=== PATIENT | female | born 1945 | race Caucasian/White ===

== ENCOUNTER → 2018-01-21 11:54 | Outpatient (CLI) | payer MEDICARE, SELFPAY ==
--- NOTE | 2018-01-21 | DI.MRI.S_ITS ---
PROCEDURE: MR KNEE RT WO CON INDICATIONS: Right knee internal derangement TECHNIQUE: Noncontrast sagittal PD fast spin echo and T2 fast spin echo with fat saturation, sagittal 3-D FLASH with fat saturation; coronal T1 spin echo and PD fast spin echo with fat saturation, and axial PD fast spin echo with fat saturation through the knee. COMPARISON: [facility], [place], XR KNEE ARTHRITIC SERIES BI, 01/06/2018, 14:57. [facility], KNEE SERIES LT, 11/22/2014, 14:05. [facility], MR, KNEE WITHOUT CONTRAST, 01/24/2014, 10:49. [facility], MR, LOWER EXTREM. JNT WO CONTRAST, 07/26/2010, 12:13. FINDINGS: Image quality: Diagnostic. Bones and joint: There is no acute fracture or dislocation. No suspicious osseous lesions are evident. No significant knee joint effusion is identified. There is no Martin's cyst. Small intra-articular joint bodies are present. The largest is located along the anterior margin of the femoral notch, which measures up to 10 mm in largest dimension (image 14, series 5). There is an irregular moderate to large full-thickness defect evident involving the lateral patellar facet with underlying degenerative/reactive marrow changes. Mild irregularity and thinning of the head articular cartilage within the medial and lateral tibiofemoral compartments is also present. Cruciate ligaments: The anterior and posterior cruciate ligaments are intact. There is slightly increased signal identified involving the anterior cruciate ligament. Menisci: There is a mildly tear identified involving the body and posterior horn of the medial meniscus that extends onto the inferior articular surface. Near complete posterior root avulsion appears to be present with prominent thinning of the posterior meniscal root. Thickening involving the body of the lateral meniscus on the coronal images does raise the possibility of a displaced flap component arising from the posterior root of the medial meniscus. There is increased signal identified oriented horizontally along the body of the lateral meniscus with fraying along the free edge of the lateral meniscus. A possibility of a subtle nondisplaced tear is difficult to exclude. Medial structures: The medial collateral ligament is intact. The semimembranosus tendon insertion is intact. The imaged portions of the pes anserinus tendons are unremarkable. No significant fluid is contained within the pes anserinus bursa. Lateral structures: The popliteal tendon is intact. The lateral collateral ligament proper (fibular collateral ligament) and the proximal tibiofibular ligaments are intact. The distal aspect of the biceps femoris tendon and the iliotibial band are intact. Anterior structures: The quadriceps and patellar tendons are intact. There is no significant edema in the infrapatellar fat pad. IMPRESSION: 1. Moderate to high-grade partial-thickness tear involving the posterior root of the medial meniscus with additional oblique tear involving the intra-articular surface. A flap tear extending into the medial gutter is difficult to exclude. 2. Low-grade anterior cruciate ligament sprain. 3. Horizontal tear versus scar involving the body of the lateral meniscus. 4. Moderate patellofemoral chondromalacia. 5. Small intra-articular joint bodies. Dictated by: Ryan Rojas M.D. on 01/21/2018 at 12:22 Approved by: Ryan Rojas M.D. on 01/21/2018 at 12:45
== END ==
PROVIDERS: PCP Internal Medicine; Visit Provider Orthopaedic Surgery
DX: M23.91 Unspecified internal derangement of right knee (principal); S83.241A Other tear of medial meniscus, current injury, right knee, initial encounter; S83.511A Sprain of anterior cruciate ligament of right knee, initial encounter; M94.261 Chondromalacia, right knee
CPT/HCPCS: 73721

== ENCOUNTER 2018-01-31 10:33 | Emergency (ER) | payer MEDICARE, SELFPAY ==
[2018-01-31 10:58] VITALS: BP 151/75; PULSE 75; RESP 13; TEMP 36.5; O2SAT 99
--- NOTE | 2018-01-31 11:16 | DI.US.S_ITS ---
PROCEDURE: US ABDOMEN COMPLETE INDICATIONS: RUQ pain TECHNIQUE: Real-time scanning was performed of the abdominal and retroperitoneal organs, with image documentation. COMPARISON: None. FINDINGS: Liver: Liver is normal in size and homogeneous in echotexture. Gallbladder: Gallbladder is sonographically normal. No gallstones. No gallbladder wall thickening. No pericholecystic fluid. No sonographic Rico sign. Biliary ducts: Intrahepatic bile ducts are non-dilated. Extrahepatic bile duct caliber measures 5.0 mm. Normal is 6-7 mm or less in diameter, or 10 mm or less post-cholecystectomy. Pancreas: Visualized portions of the pancreas are sonographically normal. Spleen: Spleen is normal in size and homogeneous in echotexture. Kidneys: Kidneys are normal in size and echotexture. Right kidney measures 9.4 cm long; left kidney measures 11.2 cm long. No hydronephrosis or nephrolithiasis. No solid masses. Aorta: Visualized aorta is normal in caliber at less than 3 cm. Iliacs: Not visualized due to bowel gas and cannot be evaluated. IVC: Intrahepatic inferior vena cava is patent. Miscellaneous: No free abdominal fluid. IMPRESSION: Normal examination without sonographic evidence of cholecystitis. Dictated by: Maura Rose MD, PhD on 01/31/2018 at 12:18 Approved by: Maura Rose MD, PhD on 01/31/2018 at 12:19
--- NOTE | 2018-01-31 11:17 | DI.RAD.S_ITS ---
PROCEDURE: XR CHEST 1V INDICATIONS: chest pain TECHNIQUE: One view of the chest was acquired. COMPARISON: None. FINDINGS: Surgical changes and devices: None. Lungs and pleura: No pleural effusions or pneumothorax. Lungs are clear. Mediastinum: Mediastinal contours appear normal. Heart size is normal. Bones and chest wall: No suspicious bony lesions. Overlying soft tissues appear unremarkable. IMPRESSION: No acute cardiopulmonary disease process. Dictated by: Maura Rose MD, PhD on 01/31/2018 at 12:04 Approved by: Maura Rose MD, PhD on 01/31/2018 at 12:04
[2018-01-31 11:43] VITALS: BP 144/62; PULSE 90; RESP 21; O2SAT 100
[2018-01-31 11:52] LABS: Add Manual Diff / Slide Review NO; Basophils Percent Auto 0.3 % (0-2); Eosinophils Percent Auto 0.2 % (2-4); Hematocrit 41.5 % (36-46); Hemoglobin 14.1 g/dL (12.0-16.0); Lymphocytes Percent Auto 8.8 % (25-40); Mean Corpuscular HGB Conc 33.9 % (30-36); Mean Corpuscular Volume 91.7 fL (80-100); Monocytes Percent Auto 8.1 % (3-14); Neutrophils Absolute Auto 6200 /uL (3000-5900); Neutrophils Percent Auto 82.6 % (50-75); Platelet Count 235 X10^3/uL (150-400); Red Blood Cell Count 4.53 X10^6/uL (4.0-5.2); Red Cell Distribution Width 13.5 % (11.6-14.8); White Blood Cell Count 7.5 X10^3/uL (4.5-11.0)
[2018-01-31] MEDS: SODIUM CHLORIDE 0.9% 1,000 ML 150 ML IV (11:53)
[2018-01-31] MEDS: ASPIRIN 81 MG TAB 324 MG PO (11:53)
[2018-01-31 11:57] LABS: INR 1.1 (0.9-1.3); Prothrombin Time 11.7 SECONDS (10.1-12.7)
[2018-01-31] MEDS: PANTOPRAZOLE 40 MG VIAL IV (11:58)
[2018-01-31 12:00] LABS: PTT Partial Thromboplastin Tim 32 SECONDS (26.4-36.2)
[2018-01-31 12:01] LABS: Alanine Aminotransferase 72 IU/L (9-52); Albumin Globulin Ratio 1.5 (1.0-2.8); Alkaline Phosphatase 77 U/L (38-126); Aspartate Aminotransferase 89 IU/L (14-36); BUN Creatinine Ratio 26.7 (6-22); Blood Urea Nitrogen 16 mg/dL (7-17); Calcium 10.7 mg/dL (8.4-10.2); Carbon Dioxide 26 mmol/L (22-32); Chloride 100 mmol/L (98-107); Creatine Kinase 75 U/L (30-135); Estimated Glomerular Filt Rate > 60.0 mL/min (>60); Globulin 3.4 g/dL (1.7-4.1); Glucose 117 mg/dL (80-110); Lipase 69 U/L (23-300); Potassium 4.7 mmol/L (3.4-5.1); Sodium 141 mmol/L (137-145); Total Protein 8.4 g/dL (6.3-8.2)
--- NOTE | 2018-01-31 12:01 | ED_ITS ---
HPI - Chest Pain General Chief Complaint: Chest Pain Stated Complaint: chest pain Time Seen by Provider: 01/31/18 11:27 Source: patient Mode of arrival: ambulatory History of Present Illness HPI narrative: Patient is a 72-year-old female who presents with chest pain. She said it started last evening at the [employer] game. She had problem artery and a salad for dinner she did take Tums last night she thought helped. However when she went to bed she had difficult time getting comfortable it kept her up all night. Pain is definitely worse with movement. All she feels it radiating from her epigastric area all the way up into her chest and jaw. Never had anything like this in the past. No nausea no diaphoresis no shortness of breath. MD complaint: chest pain Related Data Previous Rx's Medication Instructions Recorded omeprazole 40 mg PO DAILY #30 cap 01/31/18 Review of Systems Review of Systems GENERAL: Denies chills, fatigue, malaise, fever, sweats, travel HEENT: Denies sinus pain, ear pain, sore throat, difficulty swallowing, neck pain RESPIRATORY: Denies dyspnea, cough, wheezing, hemoptysis, sputum. CARDIOVASCULAR: See HPI GASTROINTESTINAL: Denies nausea, vomiting, abdominal pain, diarrhea, constipation, melena. : Denies dysuria, frequency, incontinence, hematuria, urinary retention, flank pain. MUSCULOSKELETAL: Denies weakness, joint pain, or bony pain SKIN: No rash, no erythema, no pruritus NEUROLOGIC: Denies weakness, dizziness, headache, numbness, change in speech, confusion PSYCHIATRIC: No concerning psychosocial issues. 12 point review of systems is negative except for those stated above and HPI Exam Initial Vital Signs Initial Vital Signs: Vital Signs Temperature 97.7 F 01/31/18 10:58 Pulse Rate 75 01/31/18 10:58 Respiratory Rate 13 01/31/18 10:58 Blood Pressure 151/75 H 01/31/18 10:58 Pulse Oximetry 99 01/31/18 10:58 GENERAL: Well-appearing, well-nourished and in no acute distress. HEENT: Head atraumatic,EOMI, pupils reactive, face symmetric, moist mucous membranes CARDIOVASCULAR: Regular rate and rhythm without murmurs, rubs or gallops. RESPIRATORY: Breath sounds equal bilaterally, no wheezes rales or rhonchi. ABDOMEN: Soft, nontender. Normoactive bowel sounds all 4 quadrants. No guarding or rebound : No CVA tenderness EXTREMITIES: Normal range of motion, no clubbing or edema. Neurovascularly intact NEUROLOGICAL: Alert and oriented x4.Normal gait and speech. Cranial nerves II through XII grossly intact. SKIN: Warm, dry, no laceration, no petechiae, no rashes or lesions. Scores HEART Score Heart Score history: Moderately Suspicious Heart Score EKG: Normal Heart Score Age: > or = 65 years old Heart Score risk factors: No known risk factors Heart Score troponin: < or = to normal limit Heart Score Total: 3 Course Orders Ordered: ED Orders 01/31/18 11:16 US abdomen complete Stat 01/31/18 11:17 XR chest 1V Stat 01/31/18 11:45 Complete Blood Count AUTO DIFF Stat Comprehensive Metabolic Panel Stat Lipase Stat Partial Thromboplastin Time Stat Prothrombin Time INR Stat Troponin with CK Cardiac Panel Stat Discontinued Medications Aspirin (Aspirin Chew) 324 mg PO NOW ONE Stop: 01/31/18 11:17 Last Admin: 01/31/18 11:53 Dose: 324 mg Sodium Chloride (Normal Saline 0.9%) 1,000 mls @ 150 mls/hr IV CONT [facility] Last Infusion: 01/31/18 14:02 Dose: 0 mls/hr Admin: 01/31/18 11:53 Dose: 150 mls/hr Pantoprazole Sodium (Protonix) 40 mg IV NOW ONE Stop: 01/31/18 11:17 Last Admin: 01/31/18 11:58 Dose: 40 mg Vital Signs - 8 hr 01/31/18 10:58 01/31/18 11:43 01/31/18 14:03 Temperature 97.7 F Pulse Rate 75 90 85 Respiratory Rate 13 21 15 Blood Pressure 151/75 H 143/68 H Blood Pressure [Left Arm] 144/62 H Pulse Oximetry 99 100 98 MDM - Chest Pain Lab Data Result diagrams: 01/31/18 11:45 01/31/18 11:45 Lab Results 01/31/18 01/31/18 01/31/18 Range/Units 11:45 11:45 11:45 WBC 7.5 (4.5-11.0) X10^3/uL RBC 4.53 (4.0-5.2) X10^6/uL Hgb 14.1 (12.0-16.0) g/dL Hct 41.5 (36-46) % MCV 91.7 (80-100) fL MCH 31.0 (26-34) PG MCHC 33.9 (30-36) % RDW 13.5 (11.6-14.8) % Plt Count 235 (150-400) X10^3/uL Neut % (Auto) 82.6 H (50-75) % Lymph % (Auto) 8.8 L (25-40) % [place] % (Auto) 8.1 (3-14) % Eos % (Auto) 0.2 L (2-4) % Baso % (Auto) 0.3 (0-2) % Neut # (Auto) 6200 H (3536-7643) /uL PT 11.7 (10.1-12.7) SECONDS INR 1.1 (0.9-1.3) APTT 32 (26.4-36.2) SECONDS Sodium 141 (137-145) mmol/L Potassium 4.7 (3.4-5.1) mmol/L Chloride 100 (98-107) mmol/L Carbon Dioxide 26 (22-32) mmol/L BUN 16 (7-17) mg/dL Creatinine 0.60 (0.52-1.04) mg/dL Estimated GFR > 60.0 (>60) mL/min BUN/Creatinine Ratio 26.7 H (6-22) Glucose 117 H (80-110) mg/dL Calcium 10.7 H (8.4-10.2) mg/dL Total Bilirubin 1.0 (0.2-1.3) mg/dL AST 89 H (14-36) IU/L ALT 72 H (9-52) IU/L Alkaline Phosphatase 77 (38-126) U/L Total Creatine Kinase 75 (30-135) U/L Troponin I < 0.012 (0.01-0.034) ng/mL Total Protein 8.4 H (6.3-8.2) g/dL Albumin 5.0 (3.5-5.0) g/dL Globulin 3.4 (1.7-4.1) g/dL Albumin/Globulin Ratio 1.5 (1.0-2.8) Lipase 69 (23-300) U/L Imaging Data Chest x-ray: Radiologist's impression: PROCEDURE: XR CHEST 1V INDICATIONS: chest pain TECHNIQUE: One view of the chest was acquired. COMPARISON: None. FINDINGS: Surgical changes and devices: None. Lungs and pleura: No pleural effusions or pneumothorax. Lungs are clear. Mediastinum: Mediastinal contours appear normal. Heart size is normal. Bones and chest wall: No suspicious bony lesions. Overlying soft tissues appear unremarkable. IMPRESSION: No acute cardiopulmonary disease process. Dictated by: Maura Rose MD, PhD on 01/31/2018 at 12:04 US - abdomen: Radiologist's impression: PROCEDURE: US ABDOMEN COMPLETE INDICATIONS: RUQ pain TECHNIQUE: Real-time scanning was performed of the abdominal and retroperitoneal organs, with image documentation. COMPARISON: None. FINDINGS: Liver: Liver is normal in size and homogeneous in echotexture. Gallbladder: Gallbladder is sonographically normal. No gallstones. No gallbladder wall thickening. No pericholecystic fluid. No sonographic Rico sign. Biliary ducts: Intrahepatic bile ducts are non-dilated. Extrahepatic bile duct caliber measures 5.0 mm. Normal is 6-7 mm or less in diameter, or 10 mm or less post-cholecystectomy. Pancreas: Visualized portions of the pancreas are sonographically normal. Spleen: Spleen is normal in size and homogeneous in echotexture. Kidneys: Kidneys are normal in size and echotexture. Right kidney measures 9.4 cm long; left kidney measures 11.2 cm long. No hydronephrosis or nephrolithiasis. No solid masses. Aorta: Visualized aorta is normal in caliber at less than 3 cm. Iliacs: Not visualized due to bowel gas and cannot be evaluated. IVC: Intrahepatic inferior vena cava is patent. Miscellaneous: No free abdominal fluid. IMPRESSION: Normal examination without sonographic evidence of cholecystitis. ECG Data Attestation: I personally reviewed and interpreted this ECG as follows: Prior ECG tracings: available for review Interpretation: EKG Normal sinus rhythm rate [address] changes similar to previous MDM Narrative Medical decision making narrative: Patient's pain is completely resolved and not returned. He will long discussion about chest pain and different causes. I still recommended following up with her primary care provider and if her pain should return she needs to return to the ED we have gotten all the testing for her heart if needed. However at this time she has had chest pain ongoing for more than 12 hr he has a negative troponin and other blood work. Discharge Plan Departure Patient Disposition: Home, Self-Care Clinical Impression: Atypical chest pain Discharge Date/Time: 01/31/18 14:04 Interventions: ED Discharge Assessment Last Done: 01/31/18 14:03 Instructions: DI for Atypical Chest Pain Activity Restrictions/Additional Instructions: *You have been diagnosed with atypical chest pain *What to do: You may still require further heart testing with her primary care provider however you do not need to stay in the hospital for this. *Continue to take medications as directed *Follow up with your primary care provider in 2-3 days *Return to ER if you should have persistent ongoing chest pain, shortness of breath or] any new, worsening or concerning symptoms Prescriptions: New omeprazole 40 mg capsule,delayed release(DR/EC) 40 mg PO DAILY Qty: 30 RF: 0 Referrals: Romero Christensen MD [Primary Care Provider] -
[2018-01-31 12:02] LABS: HEMOLYSIS 76 (0-50)
[2018-01-31 12:13] LABS: Troponin I < 0.012 ng/mL (0.01-0.034)
[2018-01-31 14:03] VITALS: BP 143/68; PULSE 85; RESP 15; O2SAT 98
== END 2018-01-31 14:04 | disposition home or self-care (01) ==
PROVIDERS: Emergency Provider Emergency Medicine; PCP Internal Medicine
DX: R07.89 Other chest pain (principal)
CPT/HCPCS: 36591; 71045; 76700; 80053; 82550; 82553; 83690; 84484; 85025; 85610; 85730; 93005; 96361; 96374; 99283; 99285; C9113

== ENCOUNTER 2018-02-03 11:01 | Emergency (ER) | payer MEDICARE, SELFPAY ==
[2018-02-03] VITALS (10 sets, daily range): BP systolic 78–167; BP diastolic 44–82; PULSE 82–99; RESP 16–27; TEMP 36.5; O2SAT 91–98; BMI 24.0
[2018-02-03 11:49] LABS: Add Manual Diff / Slide Review NO; Basophils Percent Auto 0.3 % (0-2); Eosinophils Percent Auto 0.4 % (2-4); Hematocrit 39.6 % (36-46); Hemoglobin 13.4 g/dL (12.0-16.0); Lymphocytes Percent Auto 7.4 % (25-40); Mean Corpuscular HGB Conc 33.9 % (30-36); Mean Corpuscular Volume 91.5 fL (80-100); Monocytes Percent Auto 7.2 % (3-14); Neutrophils Absolute Auto 6900 /uL (3000-5900); Neutrophils Percent Auto 84.7 % (50-75); Platelet Count 258 X10^3/uL (150-400); Red Blood Cell Count 4.33 X10^6/uL (4.0-5.2); Red Cell Distribution Width 13.5 % (11.6-14.8); White Blood Cell Count 8.2 X10^3/uL (4.5-11.0)
[2018-02-03] MEDS: ASPIRIN 81 MG TAB 324 MG PO (11:59)
[2018-02-03] MEDS: ACETAMINOPHEN 325 MG TABLET 650 MG PO (11:59)
[2018-02-03 12:03] LABS: Alanine Aminotransferase 58 IU/L (9-52); Albumin 4.6 g/dL (3.5-5.0); Albumin Globulin Ratio 1.3 (1.0-2.8); Alkaline Phosphatase 115 U/L (38-126); Aspartate Aminotransferase 53 IU/L (14-36); BUN Creatinine Ratio 25.7 (6-22); Bilirubin Total 0.9 mg/dL (0.2-1.3); Blood Urea Nitrogen 18 mg/dL (7-17); Calcium 9.7 mg/dL (8.4-10.2); Carbon Dioxide 30 mmol/L (22-32); Chloride 98 mmol/L (98-107); Creatine Kinase 49 U/L (30-135); Estimated Glomerular Filt Rate > 60.0 mL/min (>60); Globulin 3.5 g/dL (1.7-4.1); Glucose 133 mg/dL (80-110); HEMOLYSIS < 15 (0-50); Lipase 81 U/L (23-300); Potassium 4.1 mmol/L (3.4-5.1); Sodium 140 mmol/L (137-145); Total Protein 8.1 g/dL (6.3-8.2)
--- NOTE | 2018-02-03 12:07 | DI.CT.S_ITS ---
PROCEDURE: CT ANGIO CHEST PE PROTOCOL INDICATIONS: CP, SOB, hypoxia TECHNIQUE: After the administration of intravenous contrast, 2 mm thick sections acquired from the pulmonary apices to the posterior costophrenic angles. 3-dimensional maximum intensity projection (MIP) coronal and sagittal reformats were then acquired through the thorax. For radiation dose reduction, the following was used: automated exposure control, adjustment of mA and/or kV according to patient size. COMPARISON: None. FINDINGS: Image quality: Excellent. Pulmonary arteries: Pulmonary arteries are normal in size, and demonstrate no intraluminal filling defects to suggest central pulmonary embolism. Lungs and pleura: Small left-sided pleural effusion noted. Atelectasis noted in the dependent portions of the lungs. No pneumothorax. Central and peripheral airways are patent. Mediastinum: Heart size is normal, without pericardial effusion. No mediastinal or hilar adenopathy. Thoracic aorta is normal in caliber and enhancement. Esophagus is normal in caliber, without hiatal hernia. Bones and chest wall: No suspicious bony lesions. Ribs and thoracic spine appear intact throughout. Spine degenerative disc disease and facet arthropathy. Thyroid gland is within normal limits. No axillary or supraclavicular adenopathy. Abdomen: Visualized upper abdominal solid organs appear normal in the early arterial phase of enhancement. IMPRESSION: 1. No pulmonary embolus. 2. Small left-sided pleural effusion. Dictated by: Maura Rose MD, PhD on 02/03/2018 at 12:24 Approved by: Maura Rose MD, PhD on 02/03/2018 at 12:29
[2018-02-03 12:18] LABS: Troponin I < 0.012 ng/mL (0.01-0.034)
--- NOTE | 2018-02-03 13:00 | ED_ITS ---
HPI - Chest Pain General Chief Complaint: Chest Pain Stated Complaint: CHEST PAIN Time Seen by Provider: 02/03/18 11:25 Source: patient and family Mode of arrival: ambulatory Limitations: no limitations History of Present Illness HPI narrative: 72-year-old female presents with her , for the 2nd time in a few days with chief complaint of ongoing epigastric pain that is worse with a deep breath or motion of her thorax. She denies shortness of breath and is not dizzy nor weak or lightheaded. She denies any history of clots or cancer. She does travel frequently. She was seen and evaluated a few days ago for the same and had normal labs, x-ray and ultrasound. She was seen by her primary care provider whom had ordered an outpatient CAT scan for the possibility of PE but had a recurrent episode of her pain and presented here instead. Her description of discomfort she points to her epigastrium as opposed to her chest. MD complaint: chest pain Onset (ago): day(s) Duration: intermittent Pain location: substernal Severity: severe Severity scale (1-10): 10 Quality: sharp Relieving factors: nothing Exacerbating factors: inspiration and movement Associated symptoms: nausea Treatments prior to arrival chest pain: none Related Data On Oral Contraceptives: No Home Medications Medication Instructions Recorded Confirmed Calcium 1 tab PO DAILY 02/03/18 02/03/18 Magnesium 1 tab PO DAILY 02/03/18 02/03/18 amitriptyline 10 mg PO BEDTIME 02/03/18 02/03/18 potassium 1 tab PO DAILY 02/03/18 02/03/18 Previous Rx's Medication Instructions Recorded omeprazole 40 mg PO DAILY #30 cap 01/31/18 Allergies Allergy/AdvReac Type Severity Reaction Status Date / Time erythromycin base Allergy Verified 02/03/18 11:24 iodine Allergy Verified 02/03/18 11:24 Review of Systems Review of Systems All systems reviewed & are unremarkable except as noted in HPI and below Constitutional Denies chills, Denies fever(s), Denies lethargy and Denies weakness Eyes Denies change in vision, Denies eye discharge, Denies irritation and Denies loss of vision ENT Ears, Nose, Mouth, and Throat: Denies change in voice, Denies neck pain and Denies sore throat Cardiovascular Reports chest pain, Denies irregular heart rhythm, Denies lightheadedness, Denies palpitations, Denies dyspnea, Denies dyspnea on exertion and Denies orthopnea Respiratory Denies cough, Denies dyspnea, Denies dyspnea on exertion and Denies wheezing Gastrointestinal Gastrointestinal: Reports abdominal pain, Denies change in bowel habits, Denies diarrhea, Denies nausea and Denies vomiting Genitourinary Denies hematuria, Denies flank pain, Denies urinary incontinence and Denies urinary urgency Musculoskeletal Denies neck pain Integumentary/Breasts Denies pruritus, Denies erythema, Denies rash and Denies wounds Neurologic Denies confusion, Denies loss of vision and Denies weakness Psychiatric Denies anxiety, Denies confusion, Denies depression, Denies homicidal ideation and Denies suicidal ideation Endocrine Denies palpitations Hematologic/Lymphatic Denies easy bruising Allergic/Immunologic Denies wheezing [facility] Social History Smoking Status: Never smoker Exam Initial Vital Signs Initial Vital Signs: Vital Signs Temperature 97.7 F 02/03/18 11:01 Pulse Rate 85 02/03/18 11:01 Respiratory Rate 20 02/03/18 11:01 Blood Pressure 157/82 H 02/03/18 11:01 Pulse Oximetry 98 02/03/18 11:01 Const General: cooperative and well developed Nutritional Appearance: well nourished Orientation: alert, awake, oriented x3 and not confused [facility] Head: normocephalic and atraumatic Ears: external ears normal and TM's normal bilaterally Nose: external nose normal and No nasal discharge Face and sinus: sinuses nontender, face symmetric, no sinus tenderness and No dry mucous membranes Mouth: oral mucosae normal and moist mucous membranes Teeth and gingiva: dentition normal Throat: tonsils normal and uvula midline Eyes General: appearance normal, both eyes and all related structures Eyelids: eyelids normal Conjunctivae: conjunctivae normal Sclera: sclerae normal Pupils: PERRL EOM: EOM intact bilaterally Neck Neck: normal visual inspection, trachea midline, No lymphadenopathy, No midline deformity and No JVD Lymphatic: No lymphedema Chest Chest: normal inspection of the chest Resp Effort & Inspection: normal respiratory effort, able to speak in complete sentences, no respiratory distress and no use of accessory muscles Auscultation: clear to auscultation bilaterally, no rales, no rhonchi and no wheezes Cardio Rate: regular rate Rhythm: regular rhythm Heart Sounds: no click, no gallops, no murmurs and no rubs Pulses: normal peripheral pulses GI Inspection: non-distended Palpation: soft, no hepatosplenomegaly, No guarding, No pulsatile mass and No tender Auscultation: normal bowel sounds Back/Spine/Pelvis Back: No CVA tenderness Cervical Spine: cervical ROM normal and No pain with cervical ROM Thoracic/Lumbar Spine: thoracic and lumbar spine normal to inspection Skin General: no rashes or lesions noted, No jaundice and No petechiae Neuro General: alert, oriented x3, gait normal and no focal motor deficits Speech: speech normal Extrem General: full ROM, no clubbing, cyanosis or edema, no pedal edema and no calf tenderness Psych Appearance: well kempt Mental Status: mental status grossly normal Attitude: cooperative Thought Content: normal and suicidality Judgment: judgment good Course Orders Ordered: ED Orders 02/03/18 11:38 EKG-12 Lead Stat 02/03/18 11:43 Complete Blood Count AUTO DIFF Stat Comprehensive Metabolic Panel Stat Lipase Stat Troponin with CK Cardiac Panel Stat 02/03/18 12:07 CT angio chest PE protocol Stat 02/03/18 14:30 Troponin I Stat Discontinued Medications Acetaminophen (Tylenol) 650 mg PO NOW ONE Stop: 02/03/18 11:48 Last Admin: 02/03/18 11:59 Dose: 650 mg Aspirin (Aspirin Chew) 324 mg PO NOW ONE Stop: 02/03/18 11:39 Last Admin: 02/03/18 11:59 Dose: 324 mg Nitroglycerin (Nitrostat) 0.4 mg SL [id number] PRN PRN Reason: Chest Pain Last Admin: 02/03/18 14:34 Dose: 0.4 mg Admin: 02/03/18 14:26 Dose: 0.4 mg Vital Signs - 8 hr 02/03/18 11:01 02/03/18 12:34 02/03/18 13:25 Temperature 97.7 F Pulse Rate 85 90 89 Respiratory Rate 20 27 H 21 Blood Pressure 157/82 H Blood Pressure [Right Arm] 167/75 H 164/74 H Pulse Oximetry 98 97 98 02/03/18 14:08 02/03/18 14:26 02/03/18 14:34 Temperature Pulse Rate 86 92 H 99 H Respiratory Rate 23 Blood Pressure 134/58 H 113/56 L Blood Pressure [Right Arm] 134/58 H Pulse Oximetry 98 02/03/18 14:43 02/03/18 14:45 02/03/18 15:35 Temperature Pulse Rate 96 H 99 H 82 Respiratory Rate 24 16 Blood Pressure 78/44 L Blood Pressure [Right Arm] 105/52 L 107/55 L Pulse Oximetry 91 98 02/03/18 16:00 Temperature Pulse Rate 84 Respiratory Rate 18 Blood Pressure Blood Pressure [Right Arm] 105/56 L Pulse Oximetry 93 MDM - Chest Pain Differential Diagnosis Likely fracture of rib, pneumothorax, stable angina, unstable angina pectoris, atypical chest pain, st elevation myocardial infarction, costochondritis, chest pain, biliary colic and other (Dissection, AAA versus other) Medical Records Data Attestation: I reviewed the patient's medical records. Lab Data Attestation: I reviewed the patient's lab results. Result diagrams: 02/03/18 11:43 02/03/18 11:43 Lab Results 02/03/18 02/03/18 02/03/18 Range/Units 11:43 11:43 14:30 WBC 8.2 (4.5-11.0) X10^3/uL RBC 4.33 (4.0-5.2) X10^6/uL Hgb 13.4 (12.0-16.0) g/dL Hct 39.6 (36-46) % MCV 91.5 (80-100) fL MCH 31.0 (26-34) PG MCHC 33.9 (30-36) % RDW 13.5 (11.6-14.8) % Plt Count 258 (150-400) X10^3/uL Neut % (Auto) 84.7 H (50-75) % Lymph % (Auto) 7.4 L (25-40) % [place] % (Auto) 7.2 (3-14) % Eos % (Auto) 0.4 L (2-4) % Baso % (Auto) 0.3 (0-2) % Neut # (Auto) 6900 H (8888-4955) /uL Sodium 140 (137-145) mmol/L Potassium 4.1 (3.4-5.1) mmol/L Chloride 98 (98-107) mmol/L Carbon Dioxide 30 (22-32) mmol/L BUN 18 H (7-17) mg/dL Creatinine 0.70 (0.52-1.04) mg/dL Estimated GFR > 60.0 (>60) mL/min BUN/Creatinine Ratio 25.7 H (6-22) Glucose 133 H (80-110) mg/dL Calcium 9.7 (8.4-10.2) mg/dL Total Bilirubin 0.9 (0.2-1.3) mg/dL AST 53 H (14-36) IU/L ALT 58 H (9-52) IU/L Alkaline Phosphatase 115 (38-126) U/L Total Creatine Kinase 49 (30-135) U/L Troponin I < 0.012 0.014 (0.01-0.034) ng/mL Total Protein 8.1 (6.3-8.2) g/dL Albumin 4.6 (3.5-5.0) g/dL Globulin 3.5 (1.7-4.1) g/dL Albumin/Globulin Ratio 1.3 (1.0-2.8) Lipase 81 (23-300) U/L Imaging Data CT scan - chest: Radiologist's impression: PROCEDURE: CT ANGIO CHEST PE PROTOCOL INDICATIONS: CP, SOB, hypoxia TECHNIQUE: After the administration of intravenous contrast, 2 mm thick sections acquired from the pulmonary apices to the posterior costophrenic angles. 3-dimensional maximum intensity projection (MIP) coronal and sagittal reformats were then acquired through the thorax. For radiation dose reduction, the following was used: automated exposure control, adjustment of mA and/or kV according to patient size. COMPARISON: None. FINDINGS: Image quality: Excellent. Pulmonary arteries: Pulmonary arteries are normal in size, and demonstrate no intraluminal filling defects to suggest central pulmonary embolism. Lungs and pleura: Small left-sided pleural effusion noted. Atelectasis noted in the dependent portions of the lungs. No pneumothorax. Central and peripheral airways are patent. Mediastinum: Heart size is normal, without pericardial effusion. No mediastinal or hilar adenopathy. Thoracic aorta is normal in caliber and enhancement. Esophagus is normal in caliber, without hiatal hernia. Bones and chest wall: No suspicious bony lesions. Ribs and thoracic spine appear intact throughout. Spine degenerative disc disease and facet arthropathy. Thyroid gland is within normal limits. No axillary or supraclavicular adenopathy. Abdomen: Visualized upper abdominal solid organs appear normal in the early arterial phase of enhancement. IMPRESSION: 1. No pulmonary embolus. 2. Small left-sided pleural effusion. Dictated by: Maura Rose MD, PhD on 02/03/2018 at 12:24 Approved by: Maura Rose MD, PhD on 02/03/2018 at 12:29 ECG Data Attestation: I personally reviewed and interpreted this ECG as follows: Prior ECG tracings: available for review Interpretation: Normal sinus rhythm without signs of ectopy. Heart rate 85 MDM Narrative Medical decision making narrative: Extensive differential diagnosis including myocardial infarction, pulmonary embolism, dissection, AAA, pericardial effusion , pericarditis, pneumonia, pneumothorax, costochondritis as well as GI diagnoses such is biliary disease, pancreatitis, gastritis, peptic ulcer disease and others. Her symptoms started after eating fried food on Friday night and are epigastric in nature with some mild outpatient improvement with Tums. She has had 2 large workups evaluating for coronary artery disease with multiple normal troponins, EKGs. She has had a normal ultrasound for cholecystitis as well as the CT [facility] to rule out pulmonary embolism and other ominous findings. Discharge Plan Departure Patient Disposition: Home, Self-Care Clinical Impression: Abdominal pain, acute, epigastric Discharge Date/Time: 02/03/18 16:27 Interventions: ED Discharge Assessment Last Done: 02/03/18 16:27 Instructions: DI for Epigastric Pain Activity Restrictions/Additional Instructions: 1. Drink plenty of fluids with frequent small sips. 2. For the next 24 hours a clear liquid diet is advised. After that please employ a brat diet which would include bananas, rice, apples, toast. 3. Please take medications as directed. 4. Please follow-up with your doctor in the next 1-2 days. Call the office for an appointment. 5. Please return to the emergency Department for any worsening or persistent symptoms, such as increasing pain or fever. Prescriptions: No Action omeprazole 40 mg capsule,delayed release(DR/EC) 40 mg PO DAILY Qty: 30 RF: 0 amitriptyline 10 mg tablet 10 mg PO BEDTIME RF: 0 Calcium tablet 1 tab PO DAILY RF: 0 Magnesium tablet 1 tab PO DAILY RF: 0 potassium tablet 1 tab PO DAILY RF: 0 Referrals: Romero Christensen MD [Primary Care Provider] -
[2018-02-03] MEDS: NITROGLYCERIN 0.4 MG SL TAB SL ×2 (14:26→14:34)
--- NOTE | 2018-02-03 14:43 | PC.NURSE ---
After second dose of NTG sublingual, pt c/o dizziness. Blood pressure was taken and was 78/44. Holding 3rd dose.
[2018-02-03 15:03] LABS: Troponin I 0.014 ng/mL (0.01-0.034)
--- NOTE | 2018-02-03 15:23 | PC.NURSE ---
Pt ambulated to bathroom in stable gait and back to bed with one person stand by assist. Pt reports still has very mild kicked in the chest type of discomfort which is <1/10 during ambulation but feels better. Detailed discussion with pt on tests being done today and the other visit to r/o several typical dx with pt's presenting s/s. pt verbalized the understanding.
== END 2018-02-03 16:27 | disposition home or self-care (01) ==
PROVIDERS: Emergency Provider Emergency Medicine; PCP Internal Medicine
DX: R10.13 Epigastric pain (principal)
CPT/HCPCS: 36415; 71275; 80053; 81003; 82550; 82553; 83690; 84484; 85025; 93005; 93010; 99283; 99285; Q9967

== ENCOUNTER → 2018-02-06 13:13 | Outpatient (CLI) | payer MEDICARE, SELFPAY ==
--- NOTE | 2018-02-09 15:24 | DI.NM.S_ITS ---
DATE OF SERVICE: 02/06/2018 PROCEDURE: Exercise perfusion study. INDICATIONS: Chest pain with underlying hyperlipidemia. RADIOPHARMACEUTICAL: 25.6 mCi technetium-99m Myoview IV was injected at stress and 24.7 mCi technetium-99m Myoview IV was injected at rest. CARDIAC STRESS: Patient underwent exercise perfusion study under the supervision of an attending staff. She walked on Joshua protocol for 8 minutes 13 seconds and achieved 97% of target heart rate with normal blood pressure response. She achieved 10.1 METs of workload and functional aerobic impairment of -30%. No chest pain. She had some shortness of breath. Baseline EKG revealed sinus rhythm. Stress EKG did not reveal any inducible ischemic changes. There were no significant arrhythmias seen. RAW DATA: There was adequate myocardial uptake. There was breast shadow seen. GATED STUDY: Stress LV ejection fraction 84%. I don't see any obvious wall motion abnormalities. Resting end-diastolic volume is 64 mL. No transient ischemic dilatation. TID ratio is 0.93, which is within normal limits. Lung/heart ratio is 0.33, which is within normal limits. MYOCARDIAL PERFUSION SCAN: Stress supine and resting supine images revealed small-sized minimally decreased perfusion of distal anterior wall and anterior apex which got resolved during prone images suggest of breast tissue attenuation artifact. I don't see any convincing ischemia infarction pattern. CONCLUSION: I will call this study a normal myocardial perfusion study with evidence of breast tissue attenuation artifact which got resolved during prone images. Good exercise tolerance. Functional aerobic impairment -30%. No significant arrhythmias or ischemic EKG changes. Overall, this is a low-risk myocardial perfusion scan. Jenny Allison - ALBERTO/cm/ doc#: [id number]/job#: [id number] dd: 02/09/2018 12:40:00 dt: 02/09/2018 15:13:00 DICTATING MD/COPIES TO: Rojelio Howe MD COPIES MNE: ANNA MARIE
== END ==
PROVIDERS: PCP Internal Medicine; Visit Provider Internal Medicine
DX: R07.9 Chest pain, unspecified (principal); E78.5 Hyperlipidemia, unspecified
CPT/HCPCS: 78452; 93016; 93017; 93018; A9502

== ENCOUNTER → 2018-02-10 10:14 | Outpatient (CLI) | payer MEDICARE, SELFPAY ==
--- NOTE | 2018-02-10 | DI.CT.S_ITS ---
PROCEDURE: CT CHEST W CON INDICATIONS: 72 year-old female with left upper chest pain for one year. TECHNIQUE: After the administration of intravenous contrast, 5 mm thick sections acquired from the pulmonary apices to the posterior costophrenic angles. 7 mm thick coronal and sagittal MIP reformats were acquired. For radiation dose reduction, the following was used: automated exposure control, adjustment of mA and/or kV according to patient size. COMPARISON: [facility], CT, CT ANGIO CHEST PE PROTOCOL, 02/03/2018, 12:03. FINDINGS: Image quality: Excellent. Lungs and pleura: No acute air space opacities. There is persistent small basal left pleural effusion. On image 27, 3 mm nodule in the superior segment of the left lower lobe is again noted. On sagittal image 18, additional 3 mm nodule lies adjacent to the left major fissure. Central and peripheral airways are patent and normal in caliber. Mediastinum: Heart size is normal. No pericardial effusion. No mediastinal or hilar adenopathy by size criteria. Thoracic aorta and central pulmonary arteries are normal in size. Esophagus is normal in caliber. No hiatal hernia. Bones and chest wall: No suspicious bony lesions. No vertebral body compression fractures. No axillary or supraclavicular adenopathy by size criteria. Thyroid gland is normal in size. Abdomen: Visualized upper abdominal solid organs appear normal. Upper abdominal bowel loops are normal in caliber. IMPRESSION: 1. Persistent small basal left pleural effusion is of uncertain etiology. 2. Several 3 mm left pulmonary nodules are indeterminate. If no remote outside institution chest CTs are available for direct comparison, optional noncontrast chest CT followup in 12 months can be considered if patient has risk factors for lung cancer (see guidelines below). Fleischner Society criteria for SOLID lung nodule followup. Nodule size (mm)Low-risk patientHigh-risk patient<6 (single or multiple)No routine followup.Optional CT at 12 months. 6-8 (single or multiple)CT at 6-12 months, then optional CT at 18-24 mo.CT at 6-12 months, then CT at 18-24 months. >8 (single)CT, PET-CT, or biopsy at 3 months. Same as for low-risk pts. >8 (multiple)CT at 3-6 months, then optional CT at 18-24 mo.CT at 3-6 months, then CT at 18-24 months. Dictated by: Francis Frank M.D. on 02/10/2018 at 11:27 Approved by: Francis Frank M.D. on 02/10/2018 at 11:35
== END ==
PROVIDERS: PCP Internal Medicine; Visit Provider Internal Medicine
DX: R07.9 Chest pain, unspecified (principal); J90 Pleural effusion, not elsewhere classified; R91.8 Other nonspecific abnormal finding of lung field
CPT/HCPCS: 71260; Q9967

== ENCOUNTER → 2018-03-24 16:07 | Outpatient (CLI) | payer MEDICARE, SELFPAY ==
--- NOTE | 2018-03-24 | DI.RAD.S_ITS ---
PROCEDURE: XR CHEST 2V INDICATIONS: PLEURAL EFFUSION TECHNIQUE: 2 views of the chest were acquired. COMPARISON: [facility], CT, CT CHEST W CON, 02/10/2018, 10:17. [facility], CR, XR CHEST 1V, 01/31/2018, 11:22. FINDINGS: Surgical changes and devices: None. Lungs and pleura: Small bilateral pleural effusions are present, no pneumothorax. There is mild vertical atelectasis at the left base medially. Mediastinum: Mediastinal contours are normal. Heart size is normal. Bones and chest wall: No suspicious bony abnormalities. Soft tissues appear unremarkable. IMPRESSION: 1. Small bilateral pleural effusions. 2. Left lower lobe atelectasis. Dictated by: Willy Chavarria M.D. on 03/24/2018 at 16:44 Approved by: Willy Chavarria M.D. on 03/24/2018 at 16:47
[2018-03-24 17:17] LABS: Add Manual Diff / Slide Review NO; Basophils Percent Auto 0.7 % (0-2); Eosinophils Percent Auto 2.2 % (2-4); Hematocrit 33.4 % (36-46); Hemoglobin 11.2 g/dL (12.0-16.0); Lymphocytes Percent Auto 20.6 % (25-40); Mean Corpuscular HGB Conc 33.6 % (30-36); Mean Corpuscular Volume 92.1 fL (80-100); Monocytes Percent Auto 8.8 % (3-14); Neutrophils Absolute Auto 4100 /uL (3000-5900); Neutrophils Percent Auto 67.7 % (50-75); Platelet Count 318 X10^3/uL (150-400); Red Blood Cell Count 3.63 X10^6/uL (4.0-5.2); Red Cell Distribution Width 13.7 % (11.6-14.8)
[2018-03-24 18:09] LABS: Erythrocyte Sedimentation Rate 95 MM/HR (0-20)
[2018-03-24 18:24] LABS: Alanine Aminotransferase 161 IU/L (9-52); Albumin 4.2 g/dL (3.5-5.0); Albumin Globulin Ratio 1.2 (1.0-2.8); Alkaline Phosphatase 260 U/L (38-126); Aspartate Aminotransferase 76 IU/L (14-36); Bilirubin Total 0.7 mg/dL (0.2-1.3); Blood Urea Nitrogen 16 mg/dL (7-17); Calcium 9.2 mg/dL (8.4-10.2); Carbon Dioxide 31 mmol/L (22-32); Chloride 96 mmol/L (98-107); Estimated Glomerular Filt Rate > 60.0 mL/min (>60); Globulin 3.4 g/dL (1.7-4.1); Glucose 101 mg/dL (80-110); HEMOLYSIS < 15 (0-50); Potassium 4.4 mmol/L (3.4-5.1); Sodium 136 mmol/L (137-145); Total Protein 7.6 g/dL (6.3-8.2)
[2018-03-24 18:49] LABS: C-Reactive Protein Quant 20.8 mg/dL (<1.0); Rheumatoid Factor < 8.6 IU/mL (<12.0)
[2018-03-31 19:17] LABS: ANA Pattern Homogeneous; ANA Screen, IFA Positive (Negative); ANA Titer 1:40 titer (<1:40)
[2018-04-01 11:58] LABS: ANCA IGG N
== END ==
PROVIDERS: PCP Physician Assistant; Visit Provider Physician Assistant
DX: J90 Pleural effusion, not elsewhere classified (principal); R07.9 Chest pain, unspecified; R09.1 Pleurisy
CPT/HCPCS: 36415; 71046; 80053; 85025; 85651; 86038; 86140; 86200; 86255; 86430

== ENCOUNTER → 2018-03-26 14:50 | Outpatient (CLI) | payer MEDICARE, SELFPAY ==
[2018-03-26 15:03] LABS: Bacteria Urine None Seen; WBC Urine None Seen (0-5/HPF)
[2018-03-26 16:59] LABS: Appearance Urine UA CLEAR; Bilirubin Urine UA NEGATIVE (NEGATIVE); Color Urine UA YELLOW; Glucose Urine UA NEGATIVE (Normal); Ketones Urine UA NEGATIVE (NEGATIVE); Leukocyte Esterase Urine UA NEGATIVE (NEGATIVE); Nitrite Urine UA Negative (Negative); Occult Blood Urine UA 1+ (Negative); Protein Urine UA TRACE (Negative); Urobilinogen Urine UA 0.2 E.U./dL (0.2)
[2018-03-26 17:14] LABS: Culture Indicated Urine Cult Not Indicated; RBC Urine 5-10/HPF (0-5/HPF); Squamous Epithelial Cell Urine 5-10 /HPF
== END ==
PROVIDERS: PCP Physician Assistant; Visit Provider Physician Assistant
DX: R70.0 Elevated erythrocyte sedimentation rate (principal); R07.9 Chest pain, unspecified; J90 Pleural effusion, not elsewhere classified
CPT/HCPCS: 81001; 83516; 86200

== ENCOUNTER → 2018-04-03 10:44 | Outpatient (CLI) | payer MEDICARE, SELFPAY ==
--- NOTE | 2018-04-03 | DI.ECHO.S_ITS ---
[facility] +---------+ : : [address] : : : : [id number] : : : : Phone: [phone] Echocardiogram Report + + :Name: LUCY STOKES Study Date: 04/03/2018 Height: 64 in : :[facility] Exam Location: IS Weight: 142 lb : : Gender: Female BSA: 1.7 m2 : :: 1945 Age: 72 yrs BP: 130/80 mmHg: :Reason For Study: Chest pain : : Performed By: Margaux Page : :Referring: AYLIN BOYER : + + Interpretation Summary The ejection fraction is estimated to be 60-65%. There is moderate tricuspid regurgitation. The right ventricular systolic pressure is estimated at 27 mmHg assuming a right atrial pressure of 3 mm Hg. Borderline right ventricular enlargement. Procedure: A two-dimensional transthoracic echocardiogram with color flow and Doppler was performed. The study quality was technically adequate. There is no prior echocardiogram noted for this patient. The patient was in normal sinus rhythm during the exam. Left Ventricle: The left ventricle is normal in size, wall thickness, and systolic function without any focal wall motion abnormalities. The ejection fraction is estimated to be 60-65%. Left ventricular wall motion is normal. Right Ventricle: Borderline right ventricular enlargement. The right ventricular systolic function is normal. Atria: The left atrium is moderately dilated. Right atrial size is normal. There is no Doppler evidence for an interatrial shunt. Mitral Valve: The mitral valve leaflets appear mildly thickened, but open well. There is trace mitral regurgitation. Aortic Valve: The aortic valve is trileaflet. The aortic valve opens well. No aortic regurgitation is present. Tricuspid Valve: The tricuspid valve leaflets are thin and pliable. There is moderate tricuspid regurgitation. The right ventricular systolic pressure is estimated at 27 mmHg assuming a right atrial pressure of 3 mm Hg. Pulmonic Valve: The pulmonic valve is not well visualized. There is no pulmonic valvular regurgitation. Great Vessels: The aortic root is normal size. The ascending aorta is at the upper limits of normal in size. The aortic arch is normal in size. The pulmonary artery is not well visualized, but is probably normal size. The IVC is of normal diameter and collapses greater than 50% with a sniff. This suggests a low right atrial pressure of 3 mm Hg. Pericardium/ Pleura There is no pericardial effusion. There is no pleural effusion. MMode/2D Measurements & Calculations LVIDd: 4.1 cm LVOT diam: 2.0 cm LVIDs: 2.9 cm Ao root diam: 2.8 cm FS: 28.2 % asc Aorta Diam: 3.3 cm EPSS: 0.20 cm Ao Arch Diam (Prox Trans): 2.9 cm IVSd: 0.68 cm LVPWd: 0.77 cm LV mccollum. diameter/BSA (cm/m^2): 2.4 LV sys. diameter/BSA (cm/m^2): 1.7 LA A2 area: 22.1 cm2 RA long axis: 5.1 cm LA A4 area: 22.1 cm2 RA area: 17.3 cm2 LA length (vol): 5.4 cm RA vol: 50.0 ml LA vol: 76.8 ml RA : 29.6 ml/m2 LA vol index: 45.4 ml/m2 IVC diam: 1.6 cm RVD1 (basal): 4.4 cm Doppler Measurements & Calculations Ao V2 max: 134.1 cm/sec LVOT Max Simon: 86.8 cm/sec Ao V2 mean: 90.7 cm/sec LV V1 max P.0 mmHg Ao max P.2 mmHg LV V1 VTI: 17.3 cm Ao mean P.6 mmHg GENARO(I,D): 2.1 cm2 Ao V2 VTI: 25.5 cm GENARO(V,D): 2.0 cm2 sev ratio: 0.68 GENARO indexed to BSA (cm^2/m^2): 1.2 MV E max simon: 82.1 cm/sec TR max simon: 247.2 cm/sec MV A max simon: 55.7 cm/sec TR max P.4 mmHg MV E/A: 1.5 PA V2 max: 78.4 cm/sec Med Peak E' Simon: 7.9 cm/sec PA V2 mean: 51.3 cm/sec E/E' med: 10.3 PA mean P.2 mmHg Lat Peak E' Simon: 7.8 cm/sec PA Accel Time: 0.09 sec E/E' lat: 10.5 E/e' average: 10.4 MV dec time: 0.20 sec MV P1/2t: 60.0 msec MV P1/2t max simon: 82.1 cm/sec MVA(P1/2t): 3.7 cm2 Reading Physician:02:42 PM
== END ==
PROVIDERS: PCP Physician Assistant; Visit Provider Physician Assistant
DX: I07.1 Rheumatic tricuspid insufficiency (principal); R07.9 Chest pain, unspecified
CPT/HCPCS: 93306

== ENCOUNTER → 2018-05-01 12:15 | Outpatient (CLI) | payer MEDICARE, SELFPAY ==
--- NOTE | 2018-05-01 | DI.MG.S_ITS ---
BILATERAL DIGITAL SCREENING MAMMOGRAM 3D/2D WITH CAD: 05/01/2018 CLINICAL: Routine screening. Family history of breast cancer. Comparison is made to exams dated: 12/17/2016 mammogram, 12/06/2015 mammogram, and 11/22/2014 mammogram - [facility]. The tissue of both breasts is predominantly fatty. Current study was also evaluated with a Computer Aided Detection (CAD) system. No significant masses, calcifications, or other findings are seen in either breast. There has been no significant interval change. IMPRESSION: NEGATIVE There is no mammographic evidence of malignancy. A 1 year screening mammogram is recommended. This exam was interpreted at Station ID: [id number]. NOTE: For mammograms, a report in lay terms will be sent to the patient. Approximately 15% of breast malignancies will not be visualized mammographically. In the management of a palpable breast mass, a negative mammogram must not discourage biopsy of a clinically suspicious lesion. Electronically Signed By: Yelena diaz/jerrod:05/01/2018 16:16:31 letter sent: Normal Exam ACR BI-RADS Category 1: Negative 3341F
== END ==
PROVIDERS: PCP Physician Assistant; Visit Provider Physician Assistant
DX: Z12.31 Encounter for screening mammogram for malignant neoplasm of breast (principal); Z80.3 Family history of malignant neoplasm of breast
CPT/HCPCS: 77063; 77067

== ENCOUNTER → 2019-05-13 11:23 | Outpatient (CLI) | payer MEDICARE, OTHER, SELFPAY ==
--- NOTE | 2019-05-13 | DI.MG.S_ITS ---
BILATERAL DIGITAL SCREENING MAMMOGRAM 3D/2D WITH CAD: 05/13/2019 CLINICAL: Routine screening. Family history of breast cancer. Comparison is made to exams dated: 05/01/2018 mammogram, 12/17/2016 mammogram, and 12/06/2015 mammogram - [facility]. The tissue of both breasts is predominantly fatty. Current study was also evaluated with a Computer Aided Detection (CAD) system. No significant masses, calcifications, or other findings are seen in either breast. There has been no significant interval change. IMPRESSION: NEGATIVE There is no mammographic evidence of malignancy. A 1 year screening mammogram is recommended. This exam was interpreted at Station ID: [id number]. NOTE: For mammograms, a report in lay terms will be sent to the patient. Approximately 15% of breast malignancies will not be visualized mammographically. In the management of a palpable breast mass, a negative mammogram must not discourage biopsy of a clinically suspicious lesion. Electronically Signed By: Yelena diaz/jerrod:05/13/2019 12:18:23 copy to: Margaux Gee letter sent: Normal Exam ACR BI-RADS Category 1: Negative [id number]
== END ==
PROVIDERS: PCP Physician Assistant; Visit Provider Physician Assistant
DX: Z12.31 Encounter for screening mammogram for malignant neoplasm of breast (principal); Z80.3 Family history of malignant neoplasm of breast
CPT/HCPCS: 77063; 77067

== ENCOUNTER → 2019-05-27 08:29 | Outpatient (CLI) | payer MEDICARE, OTHER, SELFPAY ==
[2019-05-27 10:12] LABS: Alanine Aminotransferase 32 IU/L (9-52); Albumin 4.2 g/dL (3.5-5.0); Albumin Globulin Ratio 1.4 (1.0-2.8); Alkaline Phosphatase 64 U/L (38-126); Aspartate Aminotransferase 28 IU/L (14-36); BUN Creatinine Ratio 26.3 (6-22); Bilirubin Total 0.5 mg/dL (0.2-1.3); Blood Urea Nitrogen 21 mg/dL (7-17); Calcium 9.4 mg/dL (8.4-10.2); Carbon Dioxide 31 mmol/L (22-32); Chloride 104 mmol/L (98-107); Cholesterol 239 mg/dL (140-199); Estimated Glomerular Filt Rate > 60.0 mL/min (>60); Globulin 2.9 g/dL (1.7-4.1); Glucose 91 mg/dL (80-110); HDL Cholesterol 77 mg/dL (40-60); HEMOLYSIS < 15 (0-50); LDL Cholesterol Calculated 148 mg/dL (<100); Potassium 4.4 mmol/L (3.4-5.1); Sodium 140 mmol/L (137-145); Total Protein 7.1 g/dL (6.3-8.2); Triglycerides 69 mg/dL (35-150)
== END ==
PROVIDERS: PCP Physician Assistant
DX: Z13.228 Encounter for screening for other metabolic disorders (principal); E78.5 Hyperlipidemia, unspecified
CPT/HCPCS: 36415; 80053; 80061